=== PATIENT | male | born 1975 | race African-American/Black ===

== ENCOUNTER 2018-06-23 03:55 | Emergency (ER) | payer OTHER ==
[~2018-06-23] VITALS: Ht 185.4 cm; Wt 97.1 kg
[2018-06-23 03:55] VITALS: BP 132/73
--- NOTE | 2018-06-23 04:00 | NUR ---
PT [facility] IN CUSTODY FOR R AXILLARY ABSCESS AND MEDICAL CLEARANCE TO GO BACK TO HALF-WAY. PT IS AAOX4. 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 RESP EVEN UNLABORED. NO S/S OF ACUTE DISTRESS NOTED. SKIN WARM AND DRY. PT DENIES N-V-D. PT AFEBRILE. AWAITNG FOR EVAL.
--- NOTE | 2018-06-23 04:18 | NUR ---
[facility] in stable condition. Written and verbal after care instructions given. Patient verbalizes understanding of instruction.
--- NOTE | 2018-06-23 04:18 | NUR ---
Note [facility] in ED - 06/23/18 at 0420 by ANALILIA Patient discharged to [facility] IN CUSTODY in stable condition. Written and verbal after care instructions given. Patient verbalizes understanding of instruction AND RX. PT AMBULATED OUT WITH A STEADY GAIT IN HANDCUFFS.
== END 2018-06-23 04:22 ==
LOC: ER 03:56
DX: L02.411 Cutaneous abscess of right axilla (principal)
CPT/HCPCS: 99283; A4606; Z7610